=== PATIENT | female | born 1970 ===

== ENCOUNTER 2024-03-26 08:07 | Day surgery (SDC) | payer MEDICAID ==
[~2024-03-26] VITALS: Ht 167.6 cm; Wt 80.3 kg
[2024-03-26 11:00] VITALS: O2SAT 98
[2024-03-26] MEDS ORDERED: MEPERIDINE 100 MG INJ. 100 MG/ML VIAL ONE (11:11)
[2024-03-26] MEDS ORDERED: MIDAZOLAM HCL 5 MG/5 ML VIAL ONE ×2 (11:11→12:10)
[2024-03-26] MEDS ORDERED: SIMETHICONE 40 MG/0.6 ML ML ONE (12:00)
[2024-03-26 15:12] VITALS: BP_SYST 112; PULSE 76; RESP 16
== END 2024-03-26 12:56 | disposition home or self-care (01) ==
LOC: SDS 08:07 → SMU 08:20 → SDS 12:56
PROVIDERS: ATTEND Student in an Organized Health Care Education/Training Program
DX: Z12.11 Encounter for screening for malignant neoplasm of colon (principal); D12.2 Benign neoplasm of ascending colon; K64.8 Other hemorrhoids; K64.4 Residual hemorrhoidal skin tags; I10 Essential (primary) hypertension; E11.9 Type 2 diabetes mellitus without complications; E78.5 Hyperlipidemia, unspecified; Z80.0 Family history of malignant neoplasm of digestive organs; Z88.0 Allergy status to penicillin; Z79.84 Long term (current) use of oral hypoglycemic drugs; Z79.899 Other long term (current) drug therapy
CPT/HCPCS: 45385; 99152; 82948; 88305; 99153; G0378; J2250; J2175